=== PATIENT | male | born 1965 | race Caucasian/White ===

== ENCOUNTER 2025-02-26 12:31 | Emergency (ER) | payer OTHER ==
[~2025-02-26] VITALS: Ht 167.6 cm; Wt 82.6 kg
[2025-02-26] MEDS: PIPERACILLIN /TAZOBACTAM 3.375 G in IV D5W 50 ML IV ONE (13:20)
[2025-02-26] MEDS: IV NS 0.9% 1,000 ML BAG IV ONE (13:20)
[2025-02-26 13:29] LABS: CALCIUM, SERUM 8.6 mg/dL (8.5-10.1); CREATININE 0.9 mg/dL (0.6-1.3); SODIUM SERUM 137 mmol/L (136-145); UREA NITROGEN, BLOOD 9 mg/dL (7-18)
[2025-02-26 13:30] LABS: PLATELET COUNT (AUTO) 125 K/uL (150-450); RED BLOOD CELL COUNT(AUTO) 4.62 MIL/uL (4.5-6.0); RED CELL DISTRIBUTION WIDTH 14.1 % (11.5-15.0); WHITE BLOOD COUNT (AUTO) 14.3 K/uL (4.3-11.0)
[2025-02-26 13:35] LABS: ASPARTATE AMINOTRANSFERASE 13 U/L (15-37); INR 1.05 (0.91-1.10); TOTAL PROTEIN, SERUM 6.9 g/dL (6.4-8.2)
[2025-02-26 13:39] LABS: LACTIC ACID 1.0 mmol/L (0.4-2.0)
[2025-02-26] MEDS: VANCOMYCIN 1 GM in IV D5W 250 ML IV ONE (13:50)
[2025-02-26 14:38] LABS: APPEARANCE,URINE SLIGHTLY CLOUDY (CLEAR); BLOOD, URINE 2+ Ery/uL (NEGATIVE); LEUKOCYTE ESTERASE ,URINE 2+ (NEGATIVE); NITRITE, URINE POSITIVE (NEGATIVE); UGLUCOSE NEGATIVE (NEGATIVE)
[2025-02-26] MEDS ORDERED: CHOL100043 PO (14:57)
[2025-02-26] MEDS ORDERED: DOCU100C36 PO (14:57)
[2025-02-26] MEDS ORDERED: GABA300C PO (14:57)
[2025-02-26] MEDS ORDERED: NA P133E RC (14:57)
[2025-02-26] MEDS ORDERED: SENN-261 PO (14:57)
[2025-02-26] MEDS ORDERED: TRAV5DRO11 EACHEYE (14:57)
[2025-02-26] MEDS ORDERED: POLY15DR31 EACHEYE (14:57)
[2025-02-26] MEDS ORDERED: HYDR-4303 PO (14:57)
[2025-02-26] MEDS ORDERED: METH750T3 PO (14:57)
[2025-02-26] MEDS ORDERED: ACET325T53 PO (14:57)
[2025-02-26] MEDS ORDERED: LORA2VIA6 IM (14:57)
[2025-02-26] MEDS ORDERED: L. A1TAB10 PO (14:57)
[2025-02-26] MEDS ORDERED: LEVE1000 PO (14:57)
[2025-02-26] MEDS ORDERED: MAGN400O6 PO (14:57)
[2025-02-26] MEDS ORDERED: ZINC454O5 TP (14:57)
[2025-02-26] MEDS ORDERED: CRAN300T PO (14:57)
[2025-02-26 15:29] LABS: ADD URINE CULTURE YES
[2025-02-26 20:42] VITALS: BP 118/72; TEMP 98.3; O2SAT 96
== END 2025-02-26 20:43 | disposition short-term general hospital (02) ==
LOC: ER 12:36
DX: N39.0 Urinary tract infection, site not specified (principal); D72.829 Elevated white blood cell count, unspecified; R50.9 Fever, unspecified; E11.9 Type 2 diabetes mellitus without complications; I95.9 Hypotension, unspecified; H40.9 Unspecified glaucoma; R07.9 Chest pain, unspecified; Z79.899 Other long term (current) drug therapy; Z20.822 Contact with and (suspected) exposure to COVID-19
CPT/HCPCS: 99285; 96365; 96361; 71045; 96375; 87426; 93005; 84145; 85025; 80048; 87040 ×2; 87086; 83605; 80076; 81001; 36415; 84484; 85730; 87081; J3373; J2543; J7060; 87186-TC